=== PATIENT | female | born 1990 | race Caucasian/White ===

== ENCOUNTER 2016-11-02 20:09 | Emergency (ER) | payer OTHER | END 2016-11-02 21:46 | disposition home or self-care (01) | LOC: FER 20:09 | DX: S92.511A Displaced fracture of proximal phalanx of right lesser toe(s), initial encounter for closed fracture (principal); Z88.6 Allergy status to analgesic agent; W22.03XA Walked into furniture, initial encounter; Y92.009 Unspecified place in unspecified non-institutional (private) residence as the place of occurrence of the external cause | CPT/HCPCS: 73630 ==

== ENCOUNTER 2020-08-07 19:47 | Emergency (ER) | payer OTHER ==
[~2020-08-07 19:47] MED LIST: ACETAMINOPHEN500 M1 PO; COLESTID1 GM PO; NORCO 5-325 TA1 EACH PO; PHENERGAN25 M1 PO; REQUIP0.25 MG PO; ZOFRAN8 MG PO
[2020-08-07 20:45] LABS: BASOPHIL 0.3 % (0-2); HGB 13.5 g/dl (12.5-16.0); LYMPHOCYTE 32.3 % (15-48); MCH 33.8 pg (25.0-31.0); MCHC 32.9 g/dL (32.0-36.0); MCV 102.5 fL (78.0-100.0); MONOCYTE 5.3 % (0-12); MPV 9.3 fL (6.0-9.5); NEUTROPHIL 56.7 % (41-80); NRBC 0; PLT 278 K/uL (150-400); RDW 14.5 % (11.5-14.0); WBC 7.2 K/uL (4.0-10.5)
[2020-08-07 20:54] LABS: BUN/CREAT RATIO (CALC) 11.8 RATIO; CREATININE 0.76 mg/dL (0.51-0.95); POTASSIUM 3.7 mmol/L (3.5-5.1)
[2020-08-07 20:56] LABS: BILIRUBIN NEGATIVE (NEGATIVE); BLOOD NEGATIVE Ery/uL (NEGATIVE); CLARITY CLEAR (CLEAR); COLOR YELLOW (YELLOW); GLUCOSE (U) NORMAL (NORMAL); LEUKOCYTES NEGATIVE Leu/uL (NEGATIVE); NITRITE NEGATIVE (NEGATIVE); PROTEIN NEGATIVE (NEGATIVE); SPECIFIC GRAVITY >=1.030 (1.001-1.030); UROBILINOGEN 0.2 mg/dL (0.2-1.0); pH 5.5 (5.0-9.0)
[2020-08-07] MEDS ORDERED: PHENERGAN25 M1 PO (22:50)
[2020-08-07] MEDS ORDERED: NORCO 5-325 TA1 EACH PO (22:50)
== END 2020-08-07 23:00 | disposition home or self-care (01) ==
LOC: FER 19:47
PROVIDERS: Emergency Medicine Emergency Medical Services
DX: R10.2 Pelvic and perineal pain (principal); N83.201 Unspecified ovarian cyst, right side; F17.210 Nicotine dependence, cigarettes, uncomplicated; Z90.49 Acquired absence of other specified parts of digestive tract; Z88.8 Allergy status to other drugs, medicaments and biological substances
CPT/HCPCS: 36415; 76830; 80048; 81003; 83605; 84145; 85025; J1885; J2405; Q0169

== ENCOUNTER 2020-10-09 14:00 | Emergency (ER) | payer OTHER ==
[2020-10-09 14:31] LABS: BASOPHIL 0.3 % (0-2); EOSINOPHIL 1.2 % (0-5); HCT 34.9 % (37.0-47.0); HGB 11.9 g/dl (12.5-16.0); MCH 35.8 pg (25.0-31.0); MCHC 34.1 g/dL (32.0-36.0); MCV 105.1 fL (78.0-100.0); MONOCYTE 6.5 % (0-12); MPV 9.2 fL (6.0-9.5); NEUTROPHIL 60.5 % (41-80); NRBC 0; PLT 224 K/uL (150-400); RBC 3.32 M/uL (4.20-5.40); RDW 14.3 % (11.5-14.0); WBC 6.5 K/uL (4.0-10.5)
[2020-10-09 14:41] LABS: BILIRUBIN NEGATIVE (NEGATIVE); BLOOD NEGATIVE Ery/uL (NEGATIVE); CLARITY CLEAR (CLEAR); COLOR YELLOW (YELLOW); GLUCOSE (U) NORMAL (NORMAL); LEUKOCYTES NEGATIVE Leu/uL (NEGATIVE); NITRITE NEGATIVE (NEGATIVE); PROTEIN NEGATIVE (NEGATIVE); UROBILINOGEN 0.2 mg/dL (0.2-1.0)
[2020-10-09 14:47] LABS: ALBUMIN 3.3 g/dL (3.4-5.0); BILIRUBIN - TOTAL 0.3 mg/dL (0.2-1.0); BUN/CREAT RATIO (CALC) 7.1 RATIO; CREATININE 0.7 mg/dL (0.51-0.95); GLOBULIN (CALCULATION) 3.7 g/dL; POTASSIUM 3.2 mmol/L (3.5-5.1)
[2020-10-09 15:00] LABS: LACTIC ACID 1.5 mmol/L (0.4-1.9)
[2020-10-09] MEDS ORDERED: K-DUR20 MEQ PO (16:23)
== END 2020-10-09 16:50 | disposition home or self-care (01) ==
LOC: FER 14:00
PROVIDERS: Nurse Practitioner Family
DX: R06.02 Shortness of breath (principal); R05 Cough; R60.0 Localized edema; E87.6 Hypokalemia; J98.11 Atelectasis; F17.210 Nicotine dependence, cigarettes, uncomplicated; Z88.6 Allergy status to analgesic agent
CPT/HCPCS: 36415; 71046; 80053; 81003; 83605; 85025; 85379; 87040; 93005; 93971; J2405; J7030

== ENCOUNTER 2021-04-16 22:54 | Emergency (ER) | payer OTHER ==
[~2021-04-16 22:54] MED LIST changes: +K-DUR20 MEQ PO
[2021-04-17] MEDS ORDERED: FLEXERIL5 MG PO (01:31)
== END 2021-04-17 02:09 | disposition home or self-care (01) ==
LOC: FER 22:54
DX: M54.50 Low back pain, unspecified (principal); F17.200 Nicotine dependence, unspecified, uncomplicated
CPT/HCPCS: 72128; 72131; J1885

== ENCOUNTER 2021-07-11 23:26 | Emergency (ER) | payer OTHER ==
[~2021-07-11 23:26] MED LIST changes: +FLEXERIL5 MG PO
[2021-07-12 01:49] LABS: CORONAVIRUS 2019 SARS-COV-2 POSITIVE (NEGATIVE); INFLUENZA A NAA NEGATIVE (NEGATIVE)
[2021-07-12 02:33] LABS: BASOPHIL 0.2 % (0-2); EOSINOPHIL 0.7 & (0-5); LYMPHOCYTE 22.5 % (15-48); MCH 31.3 pg (25.0-31.0); MCHC 32.4 g/dL (32.0-36.0); MCV 96.4 fL (78.0-100.0); MONOCYTE 9.9 % (0-12); MPV 9.7 fL (6.0-9.5); NEUTROPHIL 66.5 % (41-80); PLT 207 K/uL (150-400); RBC 3.84 M/uL (4.20-5.40); RDW 14.9 % (11.5-14.0); WBC 4.44 K/uL (4.0-10.5)
[2021-07-12 02:53] LABS: ALBUMIN 3.5 g/dL (3.4-5.0); BILIRUBIN - TOTAL 0.4 mg/dL (0.2-1.0); BUN/CREAT RATIO (CALC) 10.7 RATIO; CREATININE 0.75 mg/dL (0.51-0.95); GLOBULIN (CALCULATION) 4.3 g/dL; POTASSIUM 3.6 mmol/L (3.5-5.1); TOTAL PROTEIN 7.8 g/dL (6.4-8.2)
[2021-07-12] MEDS ORDERED: ONDANSETRON ODT4 MG PO (06:03)
== END 2021-07-12 06:43 | disposition home or self-care (01) ==
LOC: FER 23:26
PROVIDERS: Emergency Medicine
DX: U07.1 COVID-19 (principal); F17.200 Nicotine dependence, unspecified, uncomplicated; Z88.6 Allergy status to analgesic agent
CPT/HCPCS: 36415; 71045; 71275; 80053; 84484; 85025; 85379; 93005; J1885; J2405; J7030; Q9967; U0002

== ENCOUNTER 2021-08-01 20:51 | Emergency (ER) | payer OTHER ==
[~2021-08-01 20:51] MED LIST changes: +ONDANSETRON ODT4 MG PO
[2021-08-01] MEDS ORDERED: ANTIVERT25 MG PO (23:05)
== END 2021-08-01 23:05 | disposition home or self-care (01) ==
LOC: FER 20:51
DX: H81.10 Benign paroxysmal vertigo, unspecified ear (principal)
CPT/HCPCS: 70450

== ENCOUNTER 2022-01-06 19:20 | Emergency (ER) | payer OTHER ==
[~2022-01-06 19:20] MED LIST changes: +ANTIVERT25 MG PO
[2022-01-06 19:45] LABS: BASOPHIL 0.1 % (0-2); EOSINOPHIL 1.3 % (0-5); HCT 41.9 % (37.0-47.0); HGB 13.9 g/dl (12.5-16.0); LYMPHOCYTE 33.7 % (15-48); MCH 31.4 pg (25.0-31.0); MCHC 33.2 g/dL (32.0-36.0); MCV 94.8 fL (78.0-100.0); MPV 9.9 fL (6.0-9.5); NRBC 0; PLT 254 K/uL (150-400); RBC 4.42 M/uL (4.20-5.40); RDW 13.9 % (11.5-14.0); WBC 6.9 K/uL (4.0-10.5)
[2022-01-06 19:52] LABS: INR 1.08 (0.9-1.2); PROTHROMBIN TIME 13.7 SECONDS (11.9-13.9); PTT 25.4 SECONDS (24.9-34.6)
[2022-01-06 20:01] LABS: ALBUMIN 3.8 g/dL (3.4-5.0); ALKALINE PHOSHATASE 74 U/L (46-116); ALT 39 U/L (14-59); AST 52 U/L (15-37); BILIRUBIN - TOTAL 0.5 mg/dL (0.2-1.0); BUN 7 mg/dL (7-18); BUN/CREAT RATIO (CALC) 9.5 RATIO; CHLORIDE 104 mmol/L (98-107); CO2 (BICARBONATE) 26 mmol/L (21-32); CREATININE 0.74 mg/dL (0.51-0.95); GLUCOSE 96 mg/dL (74-106); TOTAL PROTEIN 7.8 g/dL (6.4-8.2)
[2022-01-06 20:26] LABS: CORONAVIRUS 2019 SARS-COV-2 NEGATIVE (NEGATIVE); INFLUENZA A NAA NEGATIVE (NEGATIVE)
== END 2022-01-06 21:50 | disposition home or self-care (01) ==
LOC: FER 19:20
PROVIDERS: Internal Medicine
DX: R07.89 Other chest pain (principal); F17.210 Nicotine dependence, cigarettes, uncomplicated; Z20.822 Contact with and (suspected) exposure to COVID-19; Z28.310 Unvaccinated for COVID-19
CPT/HCPCS: 36415; 71045; 80053; 84484; 85025; 85610; 85730; 93005; U0002